=== PATIENT | female | born 1965 | race Hispanic/Latino ===

== ENCOUNTER → 2018-12-27 | Outpatient (CLI) | payer OTHER ==
[~2018-12-27] MED LIST: DIOVAN80 MG PO; METFORMIN HCL500 MG PO
--- NOTE | 2018-12-27 13:57 | Diagnostic Imaging Report ---
Exam: KUB - 2 views Clinical History: Renal calculi Comparison: None Findings: Nonobstructive bowel gas pattern. No evidence of free intraperitoneal air. No evidence of abnormal calcification. No acute bony abnormality. Impression: No radiographically apparent urinary calculi. Signed by: Parish Dee MD on 12/27/2018 1:53 PM
== END ==
LOC: RAD 13:09
PROVIDERS: ATTEND Urology
DX: N20.0 Calculus of kidney (principal)
CPT/HCPCS: 74018

== ENCOUNTER → 2019-04-27 | Outpatient (CLI) | payer OTHER ==
--- NOTE | 2019-04-27 15:48 | Diagnostic Imaging Report ---
Left hip, 2 views. History: Chronic hip pain. Findings:Bone mineralization is normal. There is no evidence of fracture or dislocation. There are no lytic or sclerotic lesions. The hip joint is within normal limits. 8 mm oval calcification is seen superior to the greater trochanter, unlikely to be of clinical significance. Calcified phleboliths are noted in the left pelvis. IMPRESSION: No significant abnormality. Signed by: Eriberto Harris on 04/27/2019 3:44 PM
== END ==
LOC: RAD 15:05
PROVIDERS: ATTEND Family Medicine
DX: R10.2 Pelvic and perineal pain (principal)